=== PATIENT | male | born 1980 ===

== ENCOUNTER 2018-01-13 23:01 | Emergency (ER) | payer SELFPAY ==
[2018-01-13 23:08] VITALS: BP 126/78; PULSE 74; RESP 16; TEMP 98.2; O2SAT 97
--- NOTE | 2018-01-14 04:33 | ED PDOC ---
HPI: Male Pain Time Seen by Provider: 01/14/18 02:59 Chief Complaint (Nursing): Male Genitourinary Chief Complaint (Provider): Pelvic Pain bilaterally History Per: Patient History/Exam Limitations: no limitations Onset/Duration Of Symptoms: Days (7 days ago) Current Symptoms Are (Timing): Still Present Additional Complaint(s): 38 yo male presents to the ED complaining of pelvic pain bilaterally, onset of 7 days ago. Patient reports that heavy lifting is a part of his job, and that as of late his urine stream has been decreased. Of note, he denies any discharge , sexual intercourse in the past year, fever or chills. Past Medical History Reviewed: Historical Data, Nursing Documentation, Vital Signs Vital Signs: Last Vital Signs Temp 98.2 F 01/13/18 23:04 Pulse 74 01/13/18 23:04 Resp 16 01/13/18 23:04 BP 126/78 01/13/18 23:04 Pulse Ox 97 01/13/18 23:04 - Medical History PMH: No Chronic Diseases - Surgical History Surgical History: No Surg Hx - Family History Family History: States: Unknown Family Hx - Social History Current smoker - smoking cessation education provided: No Ex-Smoker (has not smoked in the last 12 months): No Alcohol: None Drugs: Denies - Home Medications Home Medications: Ambulatory Orders Medication Instructions Recorded Ibuprofen [Motrin Tab] 600 mg PO Q6 #30 tab 01/14/18 Tamsulosin [Flomax] 0.4 mg PO DAILY #7 cap 01/14/18 - Allergies Allergies/Adverse Reactions: Allergies Allergy/AdvReac Type Severity Reaction Status Date / Time Penicillins Allergy ANAPHYLAXIS Verified 01/13/18 23:05 Review of Systems ROS Statement: Except As Marked, All Systems Reviewed And Found Negative Constitutional: Negative for: Fever, Chills Genitourinary Male: Positive for: Frequency, Other (decreased urine stream). Negative for: Penile Discharge Physical Exam - Reviewed Nursing Documentation Reviewed: Yes Vital Signs Reviewed: Yes - Physical Exam Appears: Positive for: Well, Non-toxic, No Acute Distress Head Exam: Positive for: ATRAUMATIC, NORMAL INSPECTION, NORMOCEPHALIC Skin: Positive for: Normal Color, Warm, DRY Eye Exam: Positive for: EOMI, Normal appearance, PERRL ENT: Positive for: Normal ENT Inspection Neck: Positive for: Normal, Painless ROM Cardiovascular/Chest: Positive for: Regular Rate, Rhythm. Negative for: Murmur Respiratory: Positive for: Normal Breath Sounds. Negative for: Respiratory Distress Gastrointestinal/Abdominal: Positive for: Hernia (bilaterally small, easily reducible hernias) Male Genital Exam: Positive for: normal genitalia Back: Positive for: Normal Inspection Extremity: Positive for: Normal ROM. Negative for: Pedal Edema, Deformity Neurologic/Psych: Positive for: Alert, Oriented. Negative for: Motor/Sensory Deficits - ECG O2 Sat by Pulse Oximetry: 97 (RA) Pulse Ox Interpretation: Normal Medical Decision Making Medical Decision Making: Time: --02:59 Impression: --Inguinal Hernia Plan: ----04:30 Patient is stable for discharge home. Told to f/u in clinic. Return precautions discussed. Reassess Scribe Attestation: Documented by Stefan Winters acting as a scribe for Merlin Rose MD. Provider Attestation: All medical record entries made by the Scribe were at my direction and personally dictated by me. I have reviewed the chart and agree that the record accurately reflects my personal performance of the history, physical exam, medical decision making, and the department course for this patient. I have also personally directed, reviewed, and agree with the discharge instructions and disposition. Disposition - Clinical Impression Clinical Impression: Urinary retention, Inguinal hernia - Patient ED Disposition Is Patient to be Admitted: No - Disposition Referrals: [facility] [Outside] Disposition: Routine/Home Disposition Time: 04:30 Condition: STABLE Prescriptions: Ibuprofen [Motrin Tab] 600 mg PO Q6 #30 tab Tamsulosin [Flomax] 0.4 mg PO DAILY #7 cap Instructions: Urinary Retention in Men (ED), Inguinal Hernia (ED) Forms: [place] [facility] ([facility])
== END 2018-01-14 04:15 | disposition home or self-care (01) ==
LOC: H.ER 23:01
DX: K40.90 Unilateral inguinal hernia, without obstruction or gangrene, not specified as recurrent (principal); R33.9 Retention of urine, unspecified; Z88.0 Allergy status to penicillin